=== PATIENT | female | born 1965 | race Hispanic/Latino ===

== ENCOUNTER 2017-12-16 08:34 | Emergency (ER) | payer OTHER | END 2017-12-16 09:23 | disposition home or self-care (01) | LOC: EDH 08:34 | DX: G62.9 Polyneuropathy, unspecified (principal); E08.9 Diabetes mellitus due to underlying condition without complications; M54.5 Low back pain; I10 Essential (primary) hypertension; E78.5 Hyperlipidemia, unspecified; Z87.442 Personal history of urinary calculi ==

== ENCOUNTER 2018-09-13 20:39 | Emergency (ER) | payer OTHER ==
[2018-09-13] MEDS ORDERED: ONDANSETRON ODT 4 MG TAB ONE (21:00)
[2018-09-13 21:22] LABS: APPEARANCE,URINE SL CLOUDY (CLEAR); BILIRUBIN,URINE NEGATIVE (NEGATIVE); COLOR,URINE YELLOW (YELLOW); GLUCOSE, URINE (UA) NEGATIVE (NEGATIVE); KETONES,URINE NEGATIVE (NEGATIVE); LEUKOCYTE ESTERASE ,URINE NEGATIVE (NEGATIVE); NITRATE,URINE NEGATIVE (NEGATIVE); OCCULT BLOOD,URINE NEGATIVE (NEGATIVE); PH,URINE 5.5 (5.0-8.0); PROTEIN,URINE 30 mg/dL (NEGATIVE); UROBILINOGEN,URINE 0.2 mg/dL (0.2-1.0)
[2018-09-13 21:36] LABS: BACTERIA,URINE Rare /HPF (None Seen); CALCIUM OXALATE CRYSTALS,UR Few /LPF (None Seen); RBC,URINE 0-1 /HPF (0-1); SQUAMOUS EPITHELIAL CELL,UR Few /HPF (0-2); WBC,URINE 0-1 /HPF (0-1)
[2018-09-13 21:37] LABS: MUCUS,URINE Moderate LPF (None Seen)
[2018-09-13] MEDS ORDERED: KETOROLAC TROMETHAMINE 60 MG/2 ML VIAL ONE (21:49)
== END 2018-09-13 22:15 | disposition home or self-care (01) ==
LOC: EDH 20:39
DX: M54.5 Low back pain (principal); R11.2 Nausea with vomiting, unspecified; R19.7 Diarrhea, unspecified; E11.9 Type 2 diabetes mellitus without complications; E78.5 Hyperlipidemia, unspecified; I10 Essential (primary) hypertension; Z87.442 Personal history of urinary calculi; Z88.8 Allergy status to other drugs, medicaments and biological substances
CPT/HCPCS: 81001; 82948; 96372; 99283; J1885

== ENCOUNTER 2019-01-25 11:11 | Emergency (ER) | payer SELFPAY ==
[2019-01-25] MEDS ORDERED: LIDOCAINE 5% TOPICAL PATCH TP ONE (11:54)
[2019-01-25] MEDS ORDERED: ACETAMINOPHEN EXTRA STRENGTH 500 MG TABLET ONE (11:55)
[2019-01-25] MEDS ORDERED: DIAZEPAM 5 MG TABLET ONE (11:55)
== END 2019-01-25 13:35 | disposition home or self-care (01) ==
LOC: EDH 11:11
DX: S39.012A Strain of muscle, fascia and tendon of lower back, initial encounter (principal); E11.9 Type 2 diabetes mellitus without complications; I10 Essential (primary) hypertension; E78.5 Hyperlipidemia, unspecified; Z90.49 Acquired absence of other specified parts of digestive tract; Z88.8 Allergy status to other drugs, medicaments and biological substances; Z87.442 Personal history of urinary calculi; X58.XXXA Exposure to other specified factors, initial encounter; Y93.89 Activity, other specified; Y92.89 Other specified places as the place of occurrence of the external cause; Y99.8 Other external cause status

== ENCOUNTER 2019-03-22 08:40 | Emergency (ER) | payer OTHER ==
[2019-03-22 09:11] LABS: APPEARANCE,URINE Clear (CLEAR); BILIRUBIN,URINE Negative (NEGATIVE); COLOR,URINE Yellow (YELLOW); GLUCOSE, URINE (UA) >=1000 mg/dL (NEGATIVE); KETONES,URINE Negative (NEGATIVE); LEUKOCYTE ESTERASE ,URINE Negative (NEGATIVE); NITRATE,URINE Negative (NEGATIVE); OCCULT BLOOD,URINE Negative (NEGATIVE); PROTEIN,URINE POS 2+ mg/dL (NEGATIVE); UROBILINOGEN,URINE 0.2 mg/dL (0.2-1.0)
[2019-03-22 09:22] LABS: BACTERIA,URINE Rare /HPF (None Seen); RBC,URINE 0-1 /HPF (0-1); SQUAMOUS EPITHELIAL CELL,UR Rare /HPF (0-2); WBC,URINE 0-1 /HPF (0-1)
[2019-03-22] MEDS ORDERED: NITROGLYCERIN 1GM/1 INCH PACKET TD ONE (09:36)
[2019-03-22] MEDS ORDERED: NAPROXEN 500 MG TABLET ONE (09:37)
[2019-03-22 10:00] LABS: BASOPHILS % (AUTO) 0.4 % (0.0-5.0); HEMATOCRIT 39.3 % (36-48); LYMPHOCYTES % (AUTO) 20.5 % (21.0-51.0); MEAN CORPUSCULAR HEMOGLOBIN 29.1 pg (27.0-33.0); MEAN CORPUSCULAR HGB CONC 33.6 g/dL (32.0-36.0); MEAN CORPUSCULAR VOLUME 86.6 fL (79-99); MONOCYTES % (AUTO) 3.9 % (3.0-13.0); NEUTROPHILS % (AUTO) 71.9 % (40.0-77.0); PLATELET COUNT (AUTO) 244 K/uL (130-400); RED BLOOD CELL COUNT(AUTO) 4.54 MIL/uL (4.00-5.50); RED CELL DISTRIBUTION WIDTH 11.8 % (11.0-15.5)
[2019-03-22 10:15] LABS: CREATININE 0.7 mg/dL (0.5-1.5); POTASSIUM 3.2 mmol/L (3.5-5.1)
[2019-03-22 10:23] LABS: ALBUMIN 3.7 g/dL (3.5-5.0); BILIRUBIN,TOTAL 0.3 mg/dL (0.2-1.0); TOTAL PROTEIN, SERUM 7.3 g/dL (6.0-8.3)
[2019-03-22 10:24] LABS: INR 0.93 (0.85-1.15); PARTIAL THROMBOPLASTIN TIME 24.7 SEC (26.3-35.5); PROTHROMBIN TIME 9.8 SEC (9.6-11.6)
[2019-03-22] MEDS ORDERED: POTASSIUM CHLORIDE 20 MEQ ERTAB PO ONE (10:38)
== END 2019-03-22 10:52 | disposition home or self-care (01) ==
LOC: EDH 08:40
DX: E11.65 Type 2 diabetes mellitus with hyperglycemia (principal); R07.89 Other chest pain; R51 Headache; I10 Essential (primary) hypertension; E78.5 Hyperlipidemia, unspecified; Z90.49 Acquired absence of other specified parts of digestive tract; Z88.8 Allergy status to other drugs, medicaments and biological substances; V49.9XXA Car occupant (driver) (passenger) injured in unspecified traffic accident, initial encounter; Y93.89 Activity, other specified; Y92.410 Unspecified street and highway as the place of occurrence of the external cause; Y99.8 Other external cause status
CPT/HCPCS: 36415; 71045; 80053; 81001; 82550; 84484; 85025; 85610; 85730; 93005

== ENCOUNTER → 2019-10-26 | Outpatient (CLI) | payer OTHER | END | disposition home or self-care (01) | LOC: RAH 12:11 | PROVIDERS: ATTEND Family Medicine | DX: J98.11 Atelectasis (principal); R05 Cough | CPT/HCPCS: 71046 ==

== ENCOUNTER 2020-03-29 22:38 | Emergency (ER) | payer OTHER ==
[2020-03-29] MEDS ORDERED: PROMETHAZINE HCL 25 MG/ML 1ML AMPULE IM ONE (22:39)
[2020-03-30] MEDS ORDERED: MEPERIDINE-PF 25 MG/ML SYG ONE (02:16)
== END 2020-03-30 05:07 | disposition home or self-care (01) ==
LOC: EDH 22:38
DX: S86.912A Strain of unspecified muscle(s) and tendon(s) at lower leg level, left leg, initial encounter (principal); E11.9 Type 2 diabetes mellitus without complications; E78.5 Hyperlipidemia, unspecified; I10 Essential (primary) hypertension; Z98.890 Other specified postprocedural states; Z88.8 Allergy status to other drugs, medicaments and biological substances; W18.39XA Other fall on same level, initial encounter; Y93.89 Activity, other specified; Y92.89 Other specified places as the place of occurrence of the external cause; Y99.8 Other external cause status
CPT/HCPCS: 29505; 73502; 73562; 73590; 96372 ×2; 99284; J2175; J2550

== ENCOUNTER 2020-11-24 16:03 | Emergency (ER) | payer OTHER ==
[~2020-11-24] VITALS: Ht 149.9 cm; Wt 72.6 kg
[2020-11-24 16:04] VITALS: BP 156/72
[2020-11-24] MEDS ORDERED: CYCL10 PO (17:54)
[2020-11-24] MEDS ORDERED: IBUP-2070 PO (17:54)
[2020-11-24] MEDS ORDERED: KETOROLAC 30MG VIAL (30MG/ML) IM ONE (18:00)
== END 2020-11-24 19:13 | disposition home or self-care (01) ==
LOC: EDH 16:03
DX: S80.02XA Contusion of left knee, initial encounter (principal); M54.42 Lumbago with sciatica, left side; E11.9 Type 2 diabetes mellitus without complications; I10 Essential (primary) hypertension; Z88.6 Allergy status to analgesic agent; Z88.8 Allergy status to other drugs, medicaments and biological substances; Z87.442 Personal history of urinary calculi; W18.39XA Other fall on same level, initial encounter; Y93.89 Activity, other specified; Y92.89 Other specified places as the place of occurrence of the external cause; Y99.8 Other external cause status
CPT/HCPCS: 73564; 96372; 99283; J1885

== ENCOUNTER 2021-05-25 14:57 | Emergency (ER) | payer OTHER ==
[~2021-05-25] VITALS: Ht 149.9 cm; Wt 72.1 kg
[~2021-05-25 14:57] MED LIST: CYCL10TA16 PO; IBUP-2070 PO
[2021-05-25 15:29] LABS: BASOPHILS % (AUTO) 0.6 % (0.0-5.0); EOSINOPHILS % (AUTO) 1.3 % (0.0-8.0); HEMATOCRIT 44.6 % (36-48); LYMPHOCYTES % (AUTO) 22.9 % (21.0-51.0); MEAN CORPUSCULAR HEMOGLOBIN 29.7 pg (27.0-33.0); MEAN CORPUSCULAR HGB CONC 33.6 g/dL (32.0-36.0); MEAN CORPUSCULAR VOLUME 88.3 fL (79-99); MONOCYTES % (AUTO) 4.7 % (3.0-13.0); NEUTROPHILS % (AUTO) 70.2 % (40.0-77.0); PLATELET COUNT (AUTO) 296 K/uL (130-400); RED BLOOD CELL COUNT(AUTO) 5.05 MIL/uL (4.00-5.50); RED CELL DISTRIBUTION WIDTH 12.2 % (11.0-15.5)
[2021-05-25] MEDS ORDERED: 0.9%NACL 1000ML 1,000 ML IV ONE (15:30)
[2021-05-25] MEDS ORDERED: NAPROXEN 500 MG TABLET PO ONE (15:30)
[2021-05-25] MEDS ORDERED: NAPROXEN 250 MG TAB ONE (15:38)
[2021-05-25 15:47] LABS: CREATININE 0.7 mg/dL (0.5-1.5); POTASSIUM 3.5 mmol/L (3.5-5.1)
[2021-05-25 15:48] LABS: ALBUMIN 3.7 g/dL (3.5-5.0); BILIRUBIN,TOTAL 0.4 mg/dL (0.2-1.0); TOTAL PROTEIN, SERUM 7.5 g/dL (6.0-8.3)
[2021-05-25 17:25] LABS: HCG,QUAL RESULT NEGATIVE (NEGATIVE)
[2021-05-25 17:26] LABS: AMPHET/METH SCREEN,URINE NEGATIVE (NEGATIVE); BARBITURATE SCREEN, URINE NEGATIVE (NEGATIVE); BENZODIAZEPINES SCREEN,URINE NEGATIVE (NEGATIVE); CANNABINOID SCREEN,URINE NEGATIVE (NEGATIVE); COCAINE SCREEN,URINE NEGATIVE (NEGATIVE); OPIATE SCREEN,URINE NEGATIVE (NEGATIVE); PHENCYCLIDINE SCREEN,URINE NEGATIVE (NEGATIVE)
[2021-05-25 17:56] LABS: APPEARANCE,URINE CLEAR (CLEAR); BILIRUBIN,URINE NEGATIVE (NEGATIVE); COLOR,URINE YELLOW (YELLOW); GLUCOSE, URINE (UA) >=1000 mg/dL (NEGATIVE); KETONES,URINE NEGATIVE (NEGATIVE); LEUKOCYTE ESTERASE ,URINE NEGATIVE (NEGATIVE); NITRATE,URINE NEGATIVE (NEGATIVE); OCCULT BLOOD,URINE NEGATIVE (NEGATIVE); PH,URINE 6.5 (5.0-8.0); PROTEIN,URINE NEGATIVE (NEGATIVE); UROBILINOGEN,URINE 0.2 mg/dL (0.2-1.0)
[2021-05-25 18:06] LABS: RBC,URINE 0-1 /HPF (0-1)
[2021-05-25 18:07] LABS: BACTERIA,URINE Rare /HPF (None Seen); SQUAMOUS EPITHELIAL CELL,UR Moderate /HPF (0-2); WBC,URINE 0-1 /HPF (0-1); YEAST,URINE BUDDING Rare /HPF (None Seen)
[2021-05-25] MEDS ORDERED: NAPR-1196 PO (18:10)
[2021-05-25 18:21] VITALS: BP 173/86
== END 2021-05-25 18:26 | disposition home or self-care (01) ==
LOC: EDH 14:57
DX: G44.209 Tension-type headache, unspecified, not intractable (principal); E11.9 Type 2 diabetes mellitus without complications; I10 Essential (primary) hypertension; Z79.1 Long term (current) use of non-steroidal anti-inflammatories (NSAID); Z90.49 Acquired absence of other specified parts of digestive tract
CPT/HCPCS: 36415; 80053; 80305; 81001; 81025; 85025; 96360; 99283; J7030